=== PATIENT | female | born 1945 | race African-American/Black ===

== ENCOUNTER 2023-01-21 02:46 | Emergency (ER) | payer OTHER ==
[~2023-01-21] VITALS: Ht 167.6 cm; Wt 88.9 kg
[2023-01-21] MEDS ORDERED: FAMOTIDINE (20 MG) 20 MG TABLET ONE (04:14)
[2023-01-21] MEDS: FAMOTIDINE (20 MG) 20 MG TABLET PO ONE (04:18)
[2023-01-21 15:37] VITALS: BP 134/70; TEMP 98.6; O2SAT 93
== END 2023-01-21 15:37 | disposition home or self-care (01) ==
LOC: ER 02:48
DX: F10.129 Alcohol abuse with intoxication, unspecified (principal); Y90.9 Presence of alcohol in blood, level not specified
CPT/HCPCS: 82962-TC